=== PATIENT | female | born 1950 | race Caucasian/White ===

== ENCOUNTER 2025-06-10 08:33 | Outpatient (CLI) | payer MEDICARE, SELFPAY ==
--- NOTE | 2025-06-10 09:53 | P.ANES_ITS ---
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
--- NOTE | 2025-06-10 09:53 | W.ANESCHARGE ---
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
--- NOTE | 2025-06-10 10:13 | P.ANES_ITS ---
Anesthesia Charges Start Date/Time Anesthesia Start Date: 06/10/25 Anesthesia Start Time: 09:22 Stop Date/Time Anesthesia Stop Date: 06/10/25 Anesthesia Stop Time: 09:49 Summary Extremes of Age - Over 70 or under 1: MDA Coding CPT Codes CPT Codes: ANERene LWR INTST SCR COLSC - 60445 ([id number]) P2 - PATIENT W/MILD SYST DISEASE, QX - OPERATIONS MANAGER SVC W/ MD MED DIRECTION, QK - BATCH ANALYST 2-4 CNCRNT ANES PROC Additional Codes: Summary - Extremes of Age - Over 70 or under 1: MDA ([id number])
--- NOTE | 2025-06-10 10:13 | W.ANESCHARGE ---
Anesthesia Charges Start Date/Time Anesthesia Start Date: 06/10/25 Anesthesia Start Time: 09:22 Stop Date/Time Anesthesia Stop Date: 06/10/25 Anesthesia Stop Time: 09:49 Summary Extremes of Age - Over 70 or under 1: MDA Coding CPT Codes CPT Codes: ANERene LWR INTST SCR COLSC - [id number] ([id number]) P2 - PATIENT W/MILD SYST DISEASE, QX - MAKE UP GIRL SVC W/ MD MED DIRECTION, QK - CRIMINAL LAWYER 2-4 CNCRNT ANES PROC Additional Codes: Summary - Extremes of Age - Over 70 or under 1: MDA ([id number])
== END 2025-06-10 08:34 | disposition home or self-care (01) ==
LOC: OP CLINIC 08:34
PROVIDERS: PCP Family Medicine; Visit Provider Internal Medicine Gastroenterology
DX: Z12.11 Encounter for screening for malignant neoplasm of colon (principal)
CPT/HCPCS: 00812; 45378; 99100; J2704